=== PATIENT | female | born 1960 | race Caucasian/White ===

== ENCOUNTER 2020-12-14 20:48 | Emergency (ER) | payer OTHER ==
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
[2020-12-14] MEDS ORDERED: fentaNYL 100 MCG/2 ML SDV IVPUSH ONE (22:17)
--- NOTE | 2020-12-15 10:36 | CR ---
Right ankle: 4 views of the right ankle were obtained. Comparison: No prior ankle study is available. Displaced lateral malleolus fracture is seen. There is subluxation of the tibia in the medial direction in relation to the talus. Minimal density is noted off the base of the fifth metatarsal. This may represent a very minimal cortical avulsion fracture. Diffuse soft tissue swelling is noted. Degenerative change is noted within the first MTP joint. No additional fracture or other bony abnormality is appreciated. Impression: 1. Displaced lateral malleolus fracture with subluxation of the tibia in a medial direction to the talus. 2. Possible very minimal cortical avulsion fracture off the base of the fifth metatarsal. 3. Diffuse soft tissue swelling is present. Diagnostic code #3
== END 2020-12-15 00:07 | disposition home or self-care (01) ==
LOC: JD.ED 20:48
DX: S82.61XA Displaced fracture of lateral malleolus of right fibula, initial encounter for closed fracture (principal); M25.371 Other instability, right ankle; E03.9 Hypothyroidism, unspecified; Z86.16 Personal history of COVID-19; Z79.82 Long term (current) use of aspirin; Z79.899 Other long term (current) drug therapy; V19.9XXA Pedal cyclist (driver) (passenger) injured in unspecified traffic accident, initial encounter
CPT/HCPCS: 29515; 73610; 96374; 99284; J3010; 99282